=== PATIENT | female | born 1985 | race Caucasian/White ===

== ENCOUNTER → 2016-04-13 | Outpatient (CLI) | payer OTHER ==
--- NOTE | 2016-04-13 14:56 | Diagnostic Imaging Report ---
EXAMINATION: Bilateral breast ultrasound. INDICATION: Palpable lump in the right breast at the 7 to 8 o'clock zone and nodular exam of the left breast. FINDINGS: The four-quadrants and retroareolar region of each breast were scanned with no underlying abnormality seen. IMPRESSION: Negative study. Clinical followup is recommended. A mammogram was not performed at this time and, if symptoms persist or worsen, a mammogram and followup ultrasound could be obtained. ACR BI-RADS Category 1: Negative. Dictated by: Dictated on workstation # [id number]
== END ==
LOC: RAD 12:36
PROVIDERS: ATTEND Nurse Practitioner Family
DX: N63 Unspecified lump in breast (principal)